=== PATIENT | female | born 1975 | race Hispanic/Latino ===

== ENCOUNTER 2022-07-19 18:52 | Emergency (ER) | payer MEDICAID, OTHER ==
[~2022-07-19] VITALS: Ht 152.4 cm; Wt 65.8 kg
[2022-07-19 18:55] VITALS: BP 100/68
[2022-07-19 21:42] LABS: BASOPHILS % (AUTO) 0.1 % (0.0-5.0); EOSINOPHILS % (AUTO) 0.1 % (0.0-8.0); MEAN CORPUSCULAR HGB CONC 33.3 g/dL (32.0-36.0); MEAN CORPUSCULAR VOLUME 93.1 fL (79-99); MONOCYTES % (AUTO) 3.5 % (3.0-13.0); NEUTROPHILS % (AUTO) 92.9 % (40.0-77.0); PLATELET COUNT (AUTO) 349 K/uL (130-400); RED BLOOD CELL COUNT(AUTO) 4.94 MIL/uL (4.00-5.50); RED CELL DISTRIBUTION WIDTH 12.8 % (11.0-15.5); WHITE BLOOD COUNT (AUTO) 9.1 K/uL (4.8-10.8)
[2022-07-19 21:52] LABS: POTASSIUM 4.3 mmol/L (3.5-5.1)
[2022-07-19 21:56] LABS: ALBUMIN 3.9 g/dL (3.5-5.0); TOTAL PROTEIN, SERUM 9.4 g/dL (6.0-8.3)
[2022-07-19] MEDS ORDERED: ONDANSETRON ODT 4MG TAB SL ONE (23:00)
== END 2022-07-20 01:46 | disposition left against medical advice (07) ==
LOC: EDH 18:52
DX: R10.9 Unspecified abdominal pain (principal); R11.10 Vomiting, unspecified; R53.1 Weakness; I10 Essential (primary) hypertension; Z20.822 Contact with and (suspected) exposure to COVID-19; Z98.890 Other specified postprocedural states
CPT/HCPCS: 99284; 71045; 87635; 84484; 80053; 83690; 85025; 87804 ×2; 36415; C9803